=== PATIENT | female | born 1970 | race African-American/Black ===

== ENCOUNTER 2017-09-25 15:50 | Emergency (ER) | payer OTHER ==
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
[2017-09-25] MEDS ORDERED: IBUPROFEN 800 MG TABLET PO ONE (17:35)
[2017-09-25] MEDS ORDERED: CYCLOBENZAPRINE HCL 10 MG TABLET PO ONE (17:35)
[2017-09-25] MEDS ORDERED: BACLOFEN 20 MG TABLET PO ONE (17:46)
[2017-09-25 18:07] VITALS: BP 146/99
== END 2017-09-25 18:05 | disposition home or self-care (01) ==
LOC: ER 15:50
DX: M54.9 Dorsalgia, unspecified (principal); V87.7XXA Person injured in collision between other specified motor vehicles (traffic), initial encounter; F17.200 Nicotine dependence, unspecified, uncomplicated
CPT/HCPCS: 99283; 72070; J3490